=== PATIENT | male | born 1965 | race Caucasian/White ===

== ENCOUNTER 2018-11-19 19:41 | Emergency (ER) | payer BC ==
--- NOTE | 2018-11-19 22:53 | ED ---
GI/ HPI - HPI Summary HPI Summary: Patient is a 53 y/o M presenting to ED with complaints of nausea and vomiting after ingesting a liquid form of marijuana in honey and oil. Patient states that today was his birthday and he decided to celebrate by taking some marijuana. He notes he has not had marijuana since 1993. Patient states that he took half of the marijuana that he had, did not feel anything, then took the second half, still did not feel anything. Patient took marijuana at 1530. He took a nap at 1600, woke up at 1700. Patient states that when he woke up, "I was more stoned than I ever have been in my life." Patient states that a friend had told him that kombucha could alleviate his Sx. Patient drank some kombucha, states that he vomited a couple of times afterwards. Patient is diabetic, takes pills. In the room, patient states that he feels completely fine. On triage, pain is denied. Home medications and allergies are reviewed. - History of Current Complaint Chief Complaint: EDNauseaVomitDiarrh Time Seen by Provider: 11/19/18 22:42 Stated Complaint: MARIJUANA INGESTION Hx Obtained From: Patient Onset/Duration: Started Hours Ago, Resolved - he states he feels better in room Timing: Lasting Hours Current Severity: None - pain denied Pain Intensity: 0 Associated Signs and Symptoms: Positive: Nausea, Vomiting, Other: - marijuana usage Aggravating Factor(s): Nothing Alleviating Factor(s): Nothing - Allergy/Home Medications Allergies/Adverse Reactions: Allergies Allergy/AdvReac Type Severity Reaction Status Date / Time No Known Allergies Allergy Verified 11/19/18 19:47 Home Medications: Home Medications Aspirin 325 mg PO DAILY 11/19/18 [History Confirmed 11/19/18] Atorvastatin* [Lipitor*] 40 mg PO DAILY 11/19/18 [History Confirmed 11/19/18] Cholecalciferol (Vitamin D3) [Vitamin D3] 2,000 unit PO DAILY 11/19/18 [History Confirmed 11/19/18] Lisinopril [Lisinopril 2.5 MG-] 2.5 mg PO DAILY 11/19/18 [History Confirmed ] Metformin HCl 1,000 mg PO BID 11/19/18 [History Confirmed 11/19/18] Metoprolol Succinate [Metoprolol Succinate ER] 25 mg PO DAILY 11/19/18 [History Confirmed 11/19/18] Cushing-3S/Dha/Epa/Fish Oil [Fish Oil 1,200 mg Softgel] 2 each PO DAILY 11/19/18 [ History Confirmed 11/19/18] glipiZIDE [Glipizide ER] 2.5 mg PO BID 11/19/18 [History Confirmed 11/19/18] PMH/Surg Hx/FS Hx/Imm Hx Endocrine/Hematology History: Reports: Hx Diabetes Sensory History: Denies: Hx Legally Blind, Hx Deafness Opthamlomology History: Denies: Hx Legally Blind EENT History: Denies: Hx Deafness Infectious Disease History: No Infectious Disease History: Denies: Traveled Outside the [place] in Last 30 Days - Family History Known Family History: Negative: Blood Disorder - Social History Alcohol Use: None Substance Use Type: Reports: None Smoking Status (MU): Never Smoked Tobacco Review of Systems Positive: Other - marijuana usage Positive: Vomiting, Nausea All Other Systems Reviewed And Are Negative: Yes Physical Exam - Summary Physical Exam Summary: VITAL SIGNS: Reviewed. GENERAL: Patient is a well-developed and nourished male who is lying comfortable in the stretcher. Patient is not in any acute respiratory distress. HEAD AND FACE: No signs of trauma. No ecchymosis, hematomas or skull depressions. No sinus tenderness. EYES: PERRLA, EOMI x 2, No injected conjunctiva, no nystagmus. EARS: Hearing grossly intact. Ear canals and tympanic membranes are within normal limits. MOUTH: Oropharynx within normal limits. NECK: Supple, trachea is midline, no adenopathy, no JVD, no carotid bruit, no c- spine tenderness, neck with full ROM. CHEST: Symmetric, no tenderness at palpation LUNGS: Clear to auscultation bilaterally. No wheezing or crackles. CVS: Regular rate and rhythm, S1 and S2 present, no murmurs or gallops appreciated. ABDOMEN: Soft, non-tender. No signs of distention. No rebound no guarding, and no masses palpated. Bowel sounds are normal. EXTREMITIES: FROM in all major joints, no edema, no cyanosis or clubbing. NEURO: Alert and oriented x 3. No acute neurological deficits. Speech is normal and follows commands. SKIN: Dry and warm Triage Information Reviewed: Yes Vital Signs On Initial Exam: Initial Vitals Temp Pulse Resp BP Pulse Ox 97.0 F 128 16 158/59 94 11/19/18 19:44 11/19/18 19:44 11/19/18 19:44 11/19/18 19:44 11/19/18 19:44 Vital Signs Reviewed: Yes Diagnostics - Vital Signs Vital Signs Temp Pulse Resp BP Pulse Ox 11/19/18 21:47 98.1 F 98 16 144/79 97 11/19/18 19:44 97.0 F 128 16 158/59 94 - Laboratory Lab Statement: Any lab studies that have been ordered have been reviewed, and results considered in the medical decision making process. GIGU Course/Dx - Course Course Of Treatment: Patient is a 53 y/o M presenting to ED with complaints of nausea and vomiting after ingesting a liquid form of marijuana in honey and oil. Patient states that today was his birthday and he decided to celebrate by taking some marijuana. He notes he has not had marijuana since 1993. Patient states that he took half of the marijuana that he had, did not feel anything, then took the second half, still did not feel anything. Patient took marijuana at 1530. He took a nap at 1600, woke up at 1700. Patient states that when he woke up, "I was more stoned than I ever have been in my life." Patient states that a friend had told him that kombucha could alleviate his Sx. Patient drank some kombucha, states that he vomited a couple of times afterwards. Patient is diabetic, takes pills. In the room, patient states that he feels completely fine. Physical exam is normal. As patient states that he feels fine, he will be discharged to home. Patient is agreeable with this. - Diagnoses Provider Diagnoses: Nausea and vomiting Discharge - Sign-Out/Discharge Documenting (check all that apply): Patient Departure - discharge - Discharge Plan Condition: Stable Disposition: HOME Patient Education Materials: Acute Nausea and Vomiting (ED) Referrals: Abad Kamara MD [Primary Care Provider] - 2 Days Additional Instructions: RETURN TO ED WITH ANY NEW OR WORSENING SYMPTOMS. FOLLOW UP WITH PRIMARY CARE PHYSICIAN WITHIN 2 DAYS. - Attestation Statements Document Initiated by Scribe: Yes Documenting Scribe: LIGIA MARTINEZ Provider For Whom Scribe is Documenting (Include Credential): SELENA AUSTIN MD Scribe Attestation: ILIGIA , scribed for SELENA AUSTIN MD on 11/19/18 at 2300. Status of Scribe Document: Ready
[2018-11-19 23:07] VITALS: BP 115/82
== END 2018-11-19 23:06 | disposition home or self-care (01) ==
LOC: ED 19:41
DX: R11.2 Nausea with vomiting, unspecified (principal); F12.90 Cannabis use, unspecified, uncomplicated
CPT/HCPCS: 99282